=== PATIENT | male | born 1955 | race Hispanic/Latino ===

== ENCOUNTER 2020-06-29 05:58 | Day surgery (SDC) | payer BC ==
[2020-06-29 07:26] LABS: Basophils # (Auto) 0.4 K/mm3 (0.0-0.1); Basophils % (Auto) 2.6 % (0.0-1.8); Eosinophils # (Auto) 0.4 K/mm3 (0.0-0.4); Eosinophils % (Auto) 3.1 % (0.0-4.3); Hematocrit 40.2 % (35.5-45.6); Hemoglobin 13.2 gm/dl (11.8-15.2); Lymphocytes % (Auto) 21.9 % (13.4-35.0); Mean Corpuscular HGB Conc 33 % (32-34); Mean Corpuscular Volume 96 fl (84-94); Monocytes % (Auto) 7.3 % (0.0-7.3); Platelet Count 366 K/mm3 (140-440); Red Blood Count 4.21 M/mm3 (3.65-5.03); Red Cell Distribution Width 15.2 % (13.2-15.2)
[2020-06-29 07:34] LABS: INR 0.96 (0.87-1.13); Partial Thromboplastin Time 27.5 Sec. (24.2-36.6)
[2020-06-29] MEDS: SODIUM CHLORIDE 0.9% 500 ML 500 ML IV SCH ×2 (08:08→09:05)
[2020-06-29] MEDS ORDERED: HEPARIN 10,000 UNITS/10 ML VIAL ONE (08:18)
[2020-06-29] MEDS ORDERED: HEPARIN/NS 5000 UNIT/500ML 1,000 ML IR ONE (08:18)
[2020-06-29] MEDS ORDERED: NITROGLYCERIN SYRINGE 0 ML ONE (08:19)
[2020-06-29] MEDS ORDERED: VERAPAMIL 5 MG/2 ML INJ ONE (08:19)
[2020-06-29] MEDS: LIDOCAINE (2%) 20 MG/1 ML VIAL 20 ML MDV INFILTRATI ONE ×2 (09:01→09:06)
[2020-06-29] MEDS: fentaNYL 100 MCG/2 ML INJ ONE ×2 (09:01→09:07)
[2020-06-29] MEDS: MIDAZOLAM 2 MG/2 ML INJ ONE ×2 (09:01→09:07)
--- NOTE | 2020-06-29 10:14 | Cardiac Catherization Report ---
CARDIAC CATHETERIZATION REPORT INDICATION FOR PROCEDURE: The patient is a 64-year-old white gentleman with previous history of aortic stenosis, underwent [address] [place] pericardial bioprosthesis valve replacement on 02/24/[address] Ashish Yee for severe aortic stenosis. Presently he is having significant symptoms of shortness of breath on walking 1 block. Echocardiogram showed severe aortic stenosis with ejection fraction 45-50%. The patient's coronaries were normal in 2015 on angiogram. He was sent here for further evaluation of aortic stenosis and to detect any underlying coronary artery disease. DESCRIPTION OF PROCEDURE: The patient was brought to the catheterization laboratory in a fasting condition. The patient is aware of the procedure, potential complications and alternatives of therapy available. The patient was evaluated for moderate sedation and was felt to be appropriate candidate for moderate sedation. The patient was prepared in standard fashion. Right wrist area and forearm thoroughly cleansed with chlorhexidine solution. Sterile drapes were done. Local anesthesia was given. Right radial artery puncture was made using 21-gauge arterial puncture needle. Subsequently, 5-[place] slender sheath was introduced. A 6-[place]istani multipurpose catheter was used to obtain the angiograms of the left coronary artery in multiple views and right coronary artery in multiple views followed by doing left ventriculogram using hand injection and a pressure gradient was measured across the aortic valve. At the end of the procedure, catheter and sheath were removed and good hemostasis was achieved with application of radial band. The patient was monitored for any side effects from moderate sedation throughout the procedure. The patient's moderate sedation started at 9:01 a.m. and monitoring ended at 9:22 a.m. At the end of the procedure, the patient is communicating normally with no focal deficits and breathing normally. The patient was monitored throughout the procedure with pulse oximetry, EKG monitoring and hemodynamic monitoring. Following findings were noted. HEMODYNAMICS: 1. Aortic pressure 102/69, left ventricular pressure 170/32. There is severe gradient with a [id number] gradient of 68 mmHg and mean gradient of 47.4 mmHg across the aortic valve. Left ventriculogram done in [place] projection showed left ventricular function to be lower limits of normal in the range of 45-50%. Only limited amount of dye was injected. 2. Right coronary artery dominant vessel arises normally from right coronary cusp. This shows only minimal irregularities. 3. Left coronary artery arises normally from left coronary cusp. Left main, LAD, small short, dividing into a circumflex and LAD branches. LAD in the proximal part at the ostium of the proximal diagonal branch shows 50-60% lesion, which appears to be somewhat eccentric. However, this lesion appears to be smooth. Mid and distal LAD without significant disease. Proximal diagonal branch itself shows smooth 40% ostial proximal lesion. However, rest of the vessel without significant disease. Circumflex artery shows 30% smooth proximal lesion and 50-60% smooth mid lesion, which is segmental. Distal obtuse marginal branch without significant disease. FINAL IMPRESSION: 1. Left ventricular function lower limits of normal with severe aortic stenosis with mean gradient of 47.4 mmHg and a peak gradient of 68 mmHg. LVEF around 45-50%. 2. Moderate 50-60% stenosis of the proximal LAD and mid circumflex artery noted. 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 Would recommend replacement of the valve. Moderate lesions noted in the LAD and RCA probably can be managed medically at this point. Findings were explained to the patient. We will discuss with Dr. Ashish Yee who performed his surgery in the past. The patient is agreeable with the plan. Procedure is uncomplicated. JOB# [id number] MICHELLE/NIGEL BUENROSTRO
--- NOTE | 2020-06-29 11:52 | Short Stay Summary ---
Short Stay Documentation Date of service: 06/29/20 - History H&P: obtained from office - Allergies and Medications Current Medications: Allergies No Known Allergies Allergy (Verified 01/18/15 06:50) Home Medications Medication Instructions Recorded Confirmed Last Taken Type ALPRAZolam 1 mg PO BID 01/18/15 06/29/20 06/28/20 History Aspirin EC 81 mg PO DAILY 01/18/15 06/29/20 06/29/20 History Krill Oil 300 mg PO DAILY 01/18/15 06/29/20 06/28/20 History Levothyroxine 112 mcg PO DAILY 01/18/15 06/29/20 06/28/20 History Multi Vitamin Daily 1 tab PO DAILY 01/18/15 06/29/20 06/28/20 History Pravastatin Sodium 40 mg PO DAILY 01/18/15 06/29/20 06/28/20 History Vit B12/Pyridoxine/Thiamine 2,500 mcg PO DAILY 01/18/15 06/29/20 06/28/20 History Docusate Sodium [Stool Softener] 50 mg PO BID 06/29/20 06/29/20 06/28/20 History Furosemide [Lasix] 20 mg PO QDAY 06/29/20 06/29/20 06/28/20 History Glimepiride [Amaryl] 4 mg PO QAM 06/29/20 06/29/20 06/28/20 History Pregabalin [Lyrica] 50 mg PO BID 06/29/20 06/29/20 06/28/20 History amLODIPine [Norvasc] 10 mg PO DAILY 06/29/20 06/29/20 06/28/20 History Active Medications Sodium Chloride (Nacl 0.9% 500 Ml) 500 mls @ 50 mls/hr IV DIRECT EDITH Stop: 06/29/20 16:59 Last Admin: 06/29/20 09:05 Dose: 50 mls/hr Documented by: - Brief post op/procedure progress note Date of procedure: 06/29/20 Pre-op diagnosis: Post-op diagnosis: same Procedure: C - see dictated cath report Anesthesia: local Estimated blood loss: none Condition: stable - Disposition Condition at discharge: Good Disposition: [id number] TO HOME OR SELFCARE - Discharge Diagnoses (1) Aortic valve stenosis Status: Chronic (2) Nonobstructive atherosclerosis of coronary artery Status: Chronic Short Stay Discharge Plan Activity: advance as tolerated Diet: low fat, low cholesterol, low salt Wound: open to air, keep clean and dry, per your surgeon's advice Follow up with: PAULO STRANGE MD [Primary Care Provider] - 7 Days LAKEISHA CHAN MD [Staff Physician] - 7 Days Forms: CardCath PCI D/C Instructions
[2020-06-29 12:43] VITALS: BP 105/70
== END 2020-06-29 13:26 | disposition home or self-care (01) ==
LOC: CATHLABREC 05:58
PROVIDERS: ATTEND Internal Medicine
DX: R06.02 Shortness of breath (principal); I35.0 Nonrheumatic aortic (valve) stenosis; I25.10 Atherosclerotic heart disease of native coronary artery without angina pectoris; E78.00 Pure hypercholesterolemia, unspecified; I10 Essential (primary) hypertension; M19.90 Unspecified osteoarthritis, unspecified site; E05.90 Thyrotoxicosis, unspecified without thyrotoxic crisis or storm; F32.9 Major depressive disorder, single episode, unspecified; F41.9 Anxiety disorder, unspecified; Z82.61 Family history of arthritis; Z84.1 Family history of disorders of kidney and ureter; Z79.82 Long term (current) use of aspirin; Z79.899 Other long term (current) drug therapy; Z87.891 Personal history of nicotine dependence; Z98.890 Other specified postprocedural states; Z82.49 Family history of ischemic heart disease and other diseases of the circulatory system
CPT/HCPCS: 36415; 80048; 85025; 85610; 85730; 93005; 93458; 99156; C1769; C1894; J1644; J2250; J3010; J7040; Q9967